=== PATIENT | female | born 1965 | race Caucasian/White ===

== ENCOUNTER 2021-10-08 11:48 | Inpatient (IN) | payer BC ==
[~2021-10-08] VITALS: Ht 162.6 cm; Wt 72.7 kg
--- NOTE | 2021-10-08 12:01 | NUR ---
spoke with rose stewart regarding findings in triage and order received to initiate level 1 stroke alert last seen normal 1000
--- NOTE | 2021-10-08 12:30 | NUR ---
I was called into hallway to see level1 stroke alert and she has slight left sided weakness and say's that she feels light headed since about 10am. The symptoms started at 10am and that her left leg gave away and she fell at work. Per the triage nurse, I believe she stated that when patient went to CT scan via w/c she needed assistance to get back into the w/c because she was to weak.
[2021-10-08 12:49] LABS: BASOPHILS % (AUTO) 0.3 % (0-1); EOSINOPHILS # (AUTO) 0.1 X10'3 (0-0.9); EOSINOPHILS % (AUTO) 0.4 % (0-6); HEMATOCRIT 44.5 % (35.0-45.0); HEMOGLOBIN 14.5 g/dl (12.0-16.0); LYMPHOCYTES % (AUTO) 8.6 % (21-51); MEAN CORPUSCULAR HEMOGLOBIN 29.1 PG (27.0-31.0); MEAN CORPUSCULAR HGB CONC 32.6 g/dL (33.0-36.5); MEAN CORPUSCULAR VOLUME 89.4 FL (78-98); MONOCYTES # (AUTO) 1.1 X10'3 (0-0.9); MONOCYTES % (AUTO) 8.9 % (2-12); NEUTROPHILS # (AUTO) 9.8 X10'3 (1.8-7.7); NEUTROPHILS % (AUTO) 81.8 % (42-75); PLATELET COUNT 284 X10'3 (140-440); RED BLOOD COUNT 4.98 X10'6 (4.20-5.60); RED CELL DISTRIBUTION WIDTH 13.9 % (11.5-14.5)
--- NOTE | 2021-10-08 12:50 | NUR ---
Around this time patient had telemedicine and she agreed to it and the Neurologist saw patient and will talk to Dr. Nguyen about her recommendations.
--- NOTE | 2021-10-08 12:50 | NUR ---
PT MOVED FROM BED 18 TO BED 15 10MIN AGO. STROKE NURSE AT BEDSIDE.
[2021-10-08 13:05] LABS: APTT 27 SECONDS (22-32)
--- NOTE | 2021-10-08 13:05 | NUR ---
Around this time I talked to Dr. Nguyen regarding my concern that per patient she fell at work because her left leg collapsed on her and per the triage nurse when patient was getting back into the w/c she needed help getting back into the w/c because of weakness. Per Dr. Nguyen the neurologist said no TPA and to admit and to do stroke workup. Per the patient she is light headed in general not really dizzy.
--- NOTE | 2021-10-08 13:20 | NUR ---
Gave report of my findings and the neurology findings to Steve the pt's nurse.
--- NOTE | 2021-10-08 13:46 | NUR ---
NIHSS: 0 Patient has noted weakness in left leg when standing.
--- NOTE | 2021-10-08 13:52 | NUR ---
Patient reassessed by neurologist via telemedicine per stroke nurse, GABRIELA Santos, per weakness in left arm and leg. Neurologist does not recommend TPA at this time.
--- NOTE | 2021-10-08 13:52 | NUR ---
I spoke with Dr. Nguyen regarding my concern with patient leaning to the left when she sits up and tries to stand, that it appears that she can't stand by herself. Dr. Nguyen asked me to call Dr. Bonilla the neurologist and inform her of the issue and ask her if she changes her recommendations. I talked to Dr. Bonilla and told her my concerns and she did another telemedicine video and she said the nihss was 0 again, and now it was close to 4 hours after onset and she would be a higher risk of bleeding. She did not feel that the patient would benefit from TPA at this time due to risk of bleeding and low nihss of 0. She offered the medicine to the patient and the patient declined to have the medicine ( tpa ).
[2021-10-08 13:54] LABS: ALANINE AMINOTRANSFERASE 21 U/L (12-78); ALBUMIN 3.6 G/DL (3.4-5.0); ALBUMIN/GLOBULIN RATIO 0.9 (1.1-1.5); ALKALINE PHOSPHATASE 63 IU/L (46-116); ANION GAP 9 (8-16); ASPARTATE AMINO TRANSFERASE 18 U/L (10-37); BILIRUBIN,TOTAL 0.4 MG/DL (0.1-1.0); BLOOD UREA NITROGEN 16 MG/DL (7-18); BUN/CREATININE RATIO 22.9 (6.6-38.0); CALCIUM 9.4 MG/DL (8.5-10.1); CHLORIDE 105 MMOL/L (99-107); GLUCOSE 99 MG/DL (70-104); POTASSIUM 3.8 MMOL/L (3.5-5.1); SODIUM 140 MMOL/L (135-145); TOTAL CARBON DIOXIDE 25.9 MMOL/L (24-32); TOTAL PROTEIN 7.4 G/DL (6.4-8.2); eGFR 87 ML/MIN
[2021-10-08] MEDS ORDERED: iohexol 350MG/ML 100ml bottle IV ONE (14:14)
[2021-10-08] MEDS ORDERED: LISI40TA13 PO (14:22)
[2021-10-08] MEDS ORDERED: METO-395 PO (14:22)
[2021-10-08] MEDS ORDERED: aspirin 325mg tablet PO ONE (15:05)
[2021-10-08] MEDS ORDERED: atorvastatin 20mg tablet PO SCH (15:05)
[2021-10-08] MEDS ORDERED: acetaminophen 325mg tablet PO PRN (15:45)
[2021-10-08] MEDS ORDERED: potassium Cl 20 mEq SR tablet PO PRN (15:45)
[2021-10-08] MEDS ORDERED: magnesium 2GM in 50ml NS 50 ML IV PRN (15:45)
[2021-10-08] MEDS ORDERED: magnesium hydroxide 30ml (MOM) UD suspension PO PRN (15:45)
[2021-10-08] MEDS ORDERED: potassium CL 10mEq/100ml bag 100 ML IV PRN (15:45)
[2021-10-08] MEDS ORDERED: mag hydrox/Alum hydrox/simeth 30ml oral suspension PO PRN (15:45)
[2021-10-08] MEDS ORDERED: HYDROcodone/acetaminophen 5mg/325mg tablet PO PRN (15:45)
[2021-10-08] MEDS ORDERED: bisacodyl 10mg suppository rectal RC PRN (15:45)
[2021-10-08] MEDS ORDERED: HYDROcodone/acetaminophen 10/325mg tab PO PRN (15:45)
[2021-10-08] MEDS ORDERED: acetaminophen 650mg rectal suppository RC PRN (15:45)
[2021-10-08] MEDS ORDERED: magnesium 4gm in 100ml NS 100 ML IV PRN (15:45)
[2021-10-08] MEDS ORDERED: PERFLUTREN PROTEIN-A MICROSPHR (Optison) 0.22 MG/ML 3ML VIAL IV ONE (15:45)
[2021-10-08] MEDS ORDERED: diphenhydrAMINE 25mg capsule PO PRN (15:45)
[2021-10-08] MEDS ORDERED: magnesium Cl slow-release 64mg tablet PO PRN (15:45)
[2021-10-08] MEDS ORDERED: morphine 2 MG/ML inj. syringe IV PRN ×2 (15:45)
[2021-10-08] MEDS ORDERED: ondansetron/PF 4mg/2ml inj IV PRN (15:45)
[2021-10-08] MEDS: normal saline 1000ml 1,000 ML IV SCH (16:14)
[2021-10-08 16:22] LABS: CHOL/HDL RATIO 2.6 (0.00-4.99); CHOLESTEROL 257 MG/DL (0-200); HDL CHOLESTEROL 97 MG/DL (35-60); LDL CHOLESTEROL 138 MG/DL (50-100); TRIGLYCERIDES 78 MG/DL (20-135)
[2021-10-08 19:19] LABS: CLARITY,URINE CLEAR (Clear); COLOR,URINE YELLOW (Yellow); GLUCOSE, URINE NEGATIVE (Neg); KETONES,URINE 15 mg/dl (Neg); LEUKOCYTE ESTERASE ,URINE NEGATIVE (Neg); NITRITES, URINE NEGATIVE (Neg); OCCULT BLOOD,URINE TRACE-INTACT (Neg); PROTEIN,URINE NEGATIVE (Neg); UROBILINOGEN,URINE 0.2 E.U/dL (0.2-1.0)
[2021-10-08 19:26] LABS: UA COLLECTION TYPE NON-SPECIFIED
[2021-10-08 19:30] LABS: BACTERIA,URINE FEW /HPF (Neg); MUCUS STRANDS NONE SEEN /LPF (Neg); SQUAMOUS EPITHELIAL CELL,UR FEW /LPF (FEW); WBC,URINE 0-4 /HPF (0-4)
[2021-10-08 19:31] LABS: AMORPHOUS PHOSPHATES 1+
[2021-10-08 19:40] VITALS: BP 171/83
[2021-10-08] MEDS: K and/or MAG REPLACEMENT MC SCH (20:00)
[2021-10-08] MEDS: docusate sod 100mg capsule PO SCH (20:00)
[2021-10-08] MEDS ORDERED: clopidogrel 75mg tablet PO ONE (20:30)
[2021-10-08] MEDS: heparin, porcine 5000 units/ml vial SQ SCH (21:09)
[2021-10-08 22:00] VITALS: BP 171/84
[2021-10-09 02:00] VITALS: BP 171/93
[2021-10-09] MEDS: normal saline 1000ml 1,000 ML IV SCH ×2 (05:05→23:56)
[2021-10-09 06:00] VITALS: BP 188/88
[2021-10-09 06:58] LABS: BASOPHILS # (AUTO) 0.1 X10'3 (0-0.2); BASOPHILS % (AUTO) 0.7 % (0-1); EOSINOPHILS # (AUTO) 0.1 X10'3 (0-0.9); EOSINOPHILS % (AUTO) 0.9 % (0-6); HEMATOCRIT 43.4 % (35.0-45.0); HEMOGLOBIN 14.3 g/dl (12.0-16.0); LYMPHOCYTES # (AUTO) 1.5 X10'3 (1.1-4.8); LYMPHOCYTES % (AUTO) 20.5 % (21-51); MEAN CORPUSCULAR HEMOGLOBIN 29.4 PG (27.0-31.0); MEAN CORPUSCULAR VOLUME 89.1 FL (78-98); MEAN PLATELET VOLUME 8.6 FL (7.4-10.4); MONOCYTES # (AUTO) 0.9 X10'3 (0-0.9); MONOCYTES % (AUTO) 12.1 % (2-12); NEUTROPHILS % (AUTO) 65.8 % (42-75); PLATELET COUNT 285 X10'3 (140-440); RED BLOOD COUNT 4.87 X10'6 (4.20-5.60); RED CELL DISTRIBUTION WIDTH 13.8 % (11.5-14.5); WHITE BLOOD COUNT 7.5 X10'3 (4.5-11.0)
[2021-10-09 07:09] LABS: ALANINE AMINOTRANSFERASE 22 U/L (12-78); ALBUMIN 3.7 G/DL (3.4-5.0); ALKALINE PHOSPHATASE 70 IU/L (46-116); ANION GAP 11 (8-16); ASPARTATE AMINO TRANSFERASE 18 U/L (10-37); BLOOD UREA NITROGEN 10 MG/DL (7-18); BUN/CREATININE RATIO 15.2 (6.6-38.0); CALCIUM 8.5 MG/DL (8.5-10.1); CHLORIDE 104 MMOL/L (99-107); CHOL/HDL RATIO 2.6 (0.00-4.99); CHOLESTEROL 258 MG/DL (0-200); CREATININE 0.66 MG/DL (0.40-0.90); GLUCOSE 83 MG/DL (70-104); HDL CHOLESTEROL 98 MG/DL (35-60); LDL CHOLESTEROL 138 MG/DL (50-100); PHOSPHORUS 3.6 MG/DL (2.3-4.5); POTASSIUM 3.2 MMOL/L (3.5-5.1); SODIUM 141 MMOL/L (135-145); TOTAL CARBON DIOXIDE 26.2 MMOL/L (24-32); TOTAL PROTEIN 7.4 G/DL (6.4-8.2); TRIGLYCERIDES 154 MG/DL (20-135); eGFR > 90 ML/MIN
[2021-10-09] MEDS: K and/or MAG REPLACEMENT MC SCH ×2 (08:26→20:00)
[2021-10-09] MEDS: clopidogrel 75mg tablet PO SCH (08:40)
[2021-10-09] MEDS: docusate sod 100mg capsule PO SCH ×2 (08:40→20:27)
[2021-10-09] MEDS: atorvastatin 10mg tablet PO SCH (08:40)
[2021-10-09] MEDS: heparin, porcine 5000 units/ml vial SQ SCH ×2 (08:40→20:26)
[2021-10-09] MEDS: aspirin 325mg tablet, delayed-release (Ecotrin) PO SCH (08:41)
--- NOTE | 2021-10-09 09:13 | NUR ---
Paged dr. witt regarding patients emesis and left sided weakness. Patient to MRI. Educated on all tests she will be going through.
--- NOTE | 2021-10-09 09:13 | NUR ---
[facility] Addendum: 10/09/21 at 0914 by Mary Gramajo RN Amended: Links added.
[2021-10-09 10:00] VITALS: BP 161/93
[2021-10-09] MEDS ORDERED: pantoprazole 40MG/NS 100ML BAG 100 ML IV SCH (10:40)
--- NOTE | 2021-10-09 12:25 | NUR ---
Message: [id number] Aylin Merritt do you want a rapid covid or send out? lab sent both silvia [phone]
[2021-10-09] MEDS: pantoprazole 40MG/NS 100ML BAG 100 ML IV SCH (12:27)
--- NOTE | 2021-10-09 12:43 | NUR ---
Left arm wants to pull up, and had wants to curl Addendum: 10/09/21 at 1247 by Mary Gramajo RN Amended: Links added.
--- NOTE | 2021-10-09 12:43 | NUR ---
Looks like drop foot. Addendum: 10/09/21 at 1247 by Mary Gramajo RN Amended: Links added.
[2021-10-09] MEDS: acetaminophen 325mg tablet PO PRN ×2 (14:35→20:28)
[2021-10-09] MEDS: potassium Cl 20 mEq SR tablet PO PRN ×3 (16:20→23:58)
[2021-10-09 18:00] VITALS: BP 182/97
--- NOTE | 2021-10-09 18:16 | NUR ---
Problems reprioritized. Patient report given, questions answered & plan of care reviewed with Maricruz OCHOA.
[2021-10-09 20:59] VITALS: BP_SYST 173; BP_SYST 182; BP_DIAS 89; BP_DIAS 92
[2021-10-09 21:27] LABS: URINE AMPHETAMINE SCREEN NEGATIVE (Neg); URINE BARBITUATE SCREEN NEGATIVE (Neg); URINE BENZODIAZEPINES SCREEN NEGATIVE (Neg); URINE CANNABINOID SCREEN POSITIVE (Neg); URINE COCAINE SCREEN NEGATIVE (Neg); URINE METHADONE SCREEN NEGATIVE (Neg); URINE OPIATE SCREEN NEGATIVE (Neg); URINE PHENCYCLIDINE SCREEN NEGATIVE (Neg)
[2021-10-09 22:00] VITALS: BP 173/89
[2021-10-10] VITALS (7 sets, daily range): BP systolic 163–205; BP diastolic 94–115
--- NOTE | 2021-10-10 06:35 | NUR ---
Problems reprioritized. Patient report given, questions answered & plan of care reviewed with Radha OCHOA.
--- NOTE | 2021-10-10 06:40 | NUR ---
Patient in room [facility]TH[facility] 4022. I have received report from Maricruz OCHOA and had the opportunity to ask questions and assume patient care.
[2021-10-10 07:36] LABS: BASOPHILS % (AUTO) 0.4 % (0-1); EOSINOPHILS # (AUTO) 0.1 X10'3 (0-0.9); EOSINOPHILS % (AUTO) 1.4 % (0-6); HEMATOCRIT 43.8 % (35.0-45.0); HEMOGLOBIN 14.5 g/dl (12.0-16.0); LYMPHOCYTES # (AUTO) 1.2 X10'3 (1.1-4.8); LYMPHOCYTES % (AUTO) 19.4 % (21-51); MEAN CORPUSCULAR HEMOGLOBIN 29.4 PG (27.0-31.0); MEAN CORPUSCULAR HGB CONC 33.1 g/dL (33.0-36.5); MEAN CORPUSCULAR VOLUME 88.7 FL (78-98); MEAN PLATELET VOLUME 7.8 FL (7.4-10.4); MONOCYTES # (AUTO) 0.7 X10'3 (0-0.9); MONOCYTES % (AUTO) 12.3 % (2-12); NEUTROPHILS % (AUTO) 66.5 % (42-75); PLATELET COUNT 286 X10'3 (140-440); RED BLOOD COUNT 4.93 X10'6 (4.20-5.60); RED CELL DISTRIBUTION WIDTH 13.2 % (11.5-14.5)
[2021-10-10] MEDS: K and/or MAG REPLACEMENT MC SCH ×2 (07:40→20:00)
[2021-10-10 07:51] LABS: ALANINE AMINOTRANSFERASE 16 U/L (12-78); ALBUMIN 3.6 G/DL (3.4-5.0); ALKALINE PHOSPHATASE 68 IU/L (46-116); ANION GAP 8 (8-16); ASPARTATE AMINO TRANSFERASE 13 U/L (10-37); BILIRUBIN,TOTAL 0.8 MG/DL (0.1-1.0); BLOOD UREA NITROGEN 9 MG/DL (7-18); BUN/CREATININE RATIO 13.6 (6.6-38.0); CALCIUM 8.4 MG/DL (8.5-10.1); CHLORIDE 106 MMOL/L (99-107); CREATININE 0.66 MG/DL (0.40-0.90); GLUCOSE 88 MG/DL (70-104); MAGNESIUM 1.9 MG/DL (1.5-2.4); PHOSPHORUS 2.9 MG/DL (2.3-4.5); POTASSIUM 3.9 MMOL/L (3.5-5.1); SODIUM 140 MMOL/L (135-145); TOTAL CARBON DIOXIDE 25.7 MMOL/L (24-32); TOTAL PROTEIN 7.3 G/DL (6.4-8.2); eGFR > 90 ML/MIN
[2021-10-10] MEDS: aspirin 325mg tablet, delayed-release (Ecotrin) PO SCH (08:36)
[2021-10-10] MEDS: clopidogrel 75mg tablet PO SCH (08:36)
[2021-10-10] MEDS: docusate sod 100mg capsule PO SCH ×2 (08:37→22:18)
[2021-10-10] MEDS: atorvastatin 10mg tablet PO SCH (08:37)
[2021-10-10] MEDS: heparin, porcine 5000 units/ml vial SQ SCH ×2 (08:38→22:18)
[2021-10-10] MEDS: pantoprazole 40MG/NS 100ML BAG 100 ML IV SCH (08:38)
[2021-10-10] MEDS: acetaminophen 325mg tablet PO PRN (08:52)
--- NOTE | 2021-10-10 18:35 | NUR ---
Patient in room ORTH[facility] 4021. I have received report from Radha OCHOA and had the opportunity to ask questions and assume patient care. Addendum: 10/11/21 at 0050 by Alena Coley RN Amended: Links added.
[2021-10-10] MEDS: normal saline 1000ml 1,000 ML IV SCH ×2 (22:29→22:32)
[2021-10-11] MEDS: acetaminophen 325mg tablet PO PRN (04:42)
--- NOTE | 2021-10-11 05:00 | NUR ---
Pt. slept well with c/o BLACKBURN x 1 medicated by the RN resource nurse Maricruz. No episodes of stroke events this shift. Addendum: 10/11/21 at 0649 by Alena Coley RN Amended: Links added.
[2021-10-11 06:00] VITALS: BP 189/85
--- NOTE | 2021-10-11 06:20 | NUR ---
Problems reprioritized. Patient report given, questions answered & plan of care reviewed with Radha. Addendum: 10/11/21 at 0714 by Alena Coley RN Amended: Links added.
--- NOTE | 2021-10-11 06:44 | NUR ---
Patient in room ORTHO 4022. I have received report from Alena OCHOA and had the opportunity to ask questions and assume patient care.
[2021-10-11 07:24] LABS: BASOPHILS % (AUTO) 0.5 % (0-1); EOSINOPHILS # (AUTO) 0.1 X10'3 (0-0.9); EOSINOPHILS % (AUTO) 0.9 % (0-6); HEMATOCRIT 41.7 % (35.0-45.0); HEMOGLOBIN 13.9 g/dl (12.0-16.0); LYMPHOCYTES # (AUTO) 1.3 X10'3 (1.1-4.8); LYMPHOCYTES % (AUTO) 18.8 % (21-51); MEAN CORPUSCULAR HEMOGLOBIN 29.7 PG (27.0-31.0); MEAN CORPUSCULAR HGB CONC 33.2 g/dL (33.0-36.5); MEAN CORPUSCULAR VOLUME 89.5 FL (78-98); MEAN PLATELET VOLUME 7.7 FL (7.4-10.4); MONOCYTES # (AUTO) 0.8 X10'3 (0-0.9); MONOCYTES % (AUTO) 12.4 % (2-12); NEUTROPHILS # (AUTO) 4.5 X10'3 (1.8-7.7); NEUTROPHILS % (AUTO) 67.4 % (42-75); PLATELET COUNT 284 X10'3 (140-440); RED BLOOD COUNT 4.66 X10'6 (4.20-5.60); RED CELL DISTRIBUTION WIDTH 13.1 % (11.5-14.5); WHITE BLOOD COUNT 6.7 X10'3 (4.5-11.0)
[2021-10-11] MEDS ORDERED: pantoprazole 40mg Tablet.DR PO SCH (07:30)
[2021-10-11 07:53] LABS: ALANINE AMINOTRANSFERASE 15 U/L (12-78); ALBUMIN 3.2 G/DL (3.4-5.0); ALBUMIN/GLOBULIN RATIO 0.9 (1.1-1.5); ALKALINE PHOSPHATASE 58 IU/L (46-116); ANION GAP 8 (8-16); ASPARTATE AMINO TRANSFERASE 13 U/L (10-37); BILIRUBIN,TOTAL 0.7 MG/DL (0.1-1.0); BLOOD UREA NITROGEN 9 MG/DL (7-18); BUN/CREATININE RATIO 13.2 (6.6-38.0); CALCIUM 8.3 MG/DL (8.5-10.1); CHLORIDE 107 MMOL/L (99-107); CREATININE 0.68 MG/DL (0.40-0.90); GLUCOSE 89 MG/DL (70-104); MAGNESIUM 2.1 MG/DL (1.5-2.4); PHOSPHORUS 3.3 MG/DL (2.3-4.5); POTASSIUM 3.7 MMOL/L (3.5-5.1); SODIUM 140 MMOL/L (135-145); TOTAL PROTEIN 6.6 G/DL (6.4-8.2); eGFR 90 ML/MIN
[2021-10-11] MEDS: K and/or MAG REPLACEMENT MC SCH (08:00)
[2021-10-11] MEDS: clopidogrel 75mg tablet PO SCH (08:38)
[2021-10-11] MEDS: aspirin 325mg tablet, delayed-release (Ecotrin) PO SCH (08:38)
[2021-10-11] MEDS: docusate sod 100mg capsule PO SCH (08:38)
[2021-10-11] MEDS: heparin, porcine 5000 units/ml vial SQ SCH (08:39)
[2021-10-11] MEDS: atorvastatin 10mg tablet PO SCH (08:39)
[2021-10-11 09:00] VITALS: BP 185/95
[2021-10-11 09:15] VITALS: BP_SYST 182; BP_SYST 185; BP_DIAS 106; BP_DIAS 95
[2021-10-11] MEDS ORDERED: CLOP75TA34 PO (10:55)
[2021-10-11] MEDS ORDERED: PANT40TA54 PO (10:55)
[2021-10-11] MEDS ORDERED: ATOR10TA PO (10:55)
[2021-10-11] MEDS ORDERED: ASPI-1071 PO (10:55)
[2021-10-11 14:00] VITALS: BP 159/94
== END 2021-10-11 16:15 | disposition home health service (06) | DRG 65 ==
LOC: ER 11:49 → ED HOLD 15:55 → ORTHO 4S 19:34
PROVIDERS: ADMIT Family Medicine; ATTEND Family Medicine
PROC: B3251ZZ Computerized Tomography (CT Scan) of Bilateral Common Carotid Arteries using Low Osmolar Contrast (ICD-10-PCS; principal; 2021-10-08)
PROC: B32G1ZZ Computerized Tomography (CT Scan) of Bilateral Vertebral Arteries using Low Osmolar Contrast (ICD-10-PCS; 2021-10-08)
PROC: B32R1ZZ Computerized Tomography (CT Scan) of Intracranial Arteries using Low Osmolar Contrast (ICD-10-PCS; 2021-10-08)
PROC: B3281ZZ Computerized Tomography (CT Scan) of Bilateral Internal Carotid Arteries using Low Osmolar Contrast (ICD-10-PCS; 2021-10-08)
DX: I63.89 Other cerebral infarction (principal); G81.94 Hemiplegia, unspecified affecting left nondominant side; Z20.822 Contact with and (suspected) exposure to COVID-19; F12.90 Cannabis use, unspecified, uncomplicated; I10 Essential (primary) hypertension; E78.5 Hyperlipidemia, unspecified; R29.700 NIHSS score 0; Z79.02 Long term (current) use of antithrombotics/antiplatelets; Z79.82 Long term (current) use of aspirin; Z79.899 Other long term (current) drug therapy; Z82.49 Family history of ischemic heart disease and other diseases of the circulatory system; Z86.16 Personal history of COVID-19; Z71.51 Drug abuse counseling and surveillance of drug abuser; E87.6 Hypokalemia
CPT/HCPCS: 36415; 70450; 70496; 70498; 70551; 71045; 80053; 80061; 80305; 81001; 82948; 83036; 83735; 84100; 85025; 85610; 85651; 85730; 87081; 87635; 92508; 92616; 93005; 93306; 97116; 97161; 97530; 99285; C9113; G0378; J1644; J7030; Q9967